=== PATIENT | female | born 1980 | race Caucasian/White ===

== ENCOUNTER 2024-10-25 09:59 | Inpatient (IN) | payer BC, MEDICAID ==
[~2024-10-25] VITALS: Ht 167.6 cm; Wt 64.8 kg
[2024-10-25 09:59] VITALS: BP 135/96; PULSE 124; RESP 16; TEMP 97.8; O2SAT 99
[2024-10-25] MEDS ORDERED: mag hydrox/Alum hydrox/simeth 30ml oral suspension PO PRN (10:15)
[2024-10-25] MEDS ORDERED: loperamide 2mg capsule PO PRN (10:15)
--- NOTE | 2024-10-25 10:49 | ELECTROCARDIOGRAPH REPORT ---
[facility] Test Date: 2024-10-25 Test Time: 10:47:28 Pat Name: TRA TROY Department: [facility]-ADULT Patient ID: [id number] Room: 323 B Gender: M Technical Solutions Engineer: AG : 1980 Requested By: KALEB CHAN Order Number: [id number] Reading MD: Dr. IRAIS Mcneal Measurements Intervals [place] Rate: 95 P: 0 NH: 89 QRS: 62 QRSD: 127 T: 240 QT: 346 QTc: 435 Interpretive Statements Sinus rhythm Multiple ventricular premature complexes Short NH interval Left bundle branch block Electronically Signed On 10-25-2024 13:25:[address] IRAIS Mcneal Please click the below link to view image of tracing.
[2024-10-25] MEDS: NICOTINE POLACRILEX 2 MG LOZENGE BC PRN (11:24)
[2024-10-25] MEDS: nicotine 21mg patch - 24 hr TD SCH (11:24)
[2024-10-25 11:57] VITALS: RESP 16; O2SAT 99
[2024-10-25] MEDS ORDERED: PROP10TA10 PO (13:08)
[2024-10-25] MEDS ORDERED: ESCI10TA PO (13:08)
[2024-10-25 14:00] VITALS: BP 133/86; PULSE 117; RESP 14; O2SAT 98
[2024-10-25] MEDS ORDERED: PERF3DRO EACHEYE (15:32)
[2024-10-25] MEDS ORDERED: ACAM333T8 PO (15:32)
[2024-10-25] MEDS ORDERED: LISI20TA28 PO (15:32)
[2024-10-25] MEDS ORDERED: PERFLUOROHEXYLOCTANE EACHEYE PRN (16:05)
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
[2024-10-25 18:00] VITALS: BP 127/81; PULSE 92; RESP 16; O2SAT 98
[2024-10-25 19:00] VITALS: RESP 18; O2SAT 100
[2024-10-25 20:00] VITALS: BP 119/84; PULSE 103; RESP 18; TEMP 99; O2SAT 100
[2024-10-25] MEDS: propranolol 10mg tablet PO SCH (21:28)
[2024-10-26] MEDS ORDERED: ACAMPROSATE CALCIUM 333 MG PO SCH
[2024-10-26 07:00] VITALS: RESP 16; O2SAT 97
[2024-10-26 08:00] VITALS: BP 100/71; PULSE 72; RESP 16; TEMP 97.1; O2SAT 97
[2024-10-26] MEDS ORDERED: propranolol 10mg tablet PO SCH (08:00)
[2024-10-26] MEDS ORDERED: ESCITALOPRAM 10 mg tablet 10 MG TABLET PO SCH (08:00)
[2024-10-26] MEDS: ESCITALOPRAM 10 mg tablet 10 MG TABLET PO SCH (08:27)
[2024-10-26] MEDS: multivitamins, therapeutics tablet PO SCH (08:28)
--- NOTE | 2024-10-26 11:09 | PROGRESS NOTE ---
Progress Note Dictate Providers to CC ~ Central Line/PICC still needed: N\\A Antibiotic Ordered?: No MRSA Education MRSA Education Provided to pt: No Objective Vitals Vital Signs Date Time Temp Pulse Resp B/P (MAP) Pulse Ox O2 Delivery O2 Flow Rate FiO2 10/26/24 08:28 72 10/26/24 08:00 97.1 16 100/71 (81) 97 Room Air Counseling Services Smoking & Tobacco Cessation: > 10 Minutes Problem\\Assessment\\Plan Problems/Diagnosis: (1) Major depression, recurrent (2) Generalized anxiety disorder (3) Alcohol abuse with alcohol-induced mood disorder (4) Alcohol abuse Psychiatrist's Progress Note Date of Service: Oct 26, 2024 Notes CHART REVIEW Pt is a 44 year old single white female who was admitted on 10/25/2024 on a 5150 for DTS with a plan to jump from a bridge or intentionally overdose. She reported hopelessness, depressed mood, poor self-esteem, trouble concentrating, and suicidal ideation per the 5150. Patient has history of MDD, recurrent severe, anxiety, alcohol use disorder, severe, and hypertension. She reported that she has been drinking heavily for the last 5 years and drinks daily. Pt reported that her sister brought her to the hospital because she was saying that she "didn't want to live anymore". Pt endorses recently "drinking a lot of alcohol", approximately "1 large bottle of wine every day". She reported feelings of not wanting to live "coming and going", feeling overwhelmed with her current family situation over the last 6 months. Pt reported that her dad 1 year ago, and her grandmother 6 months ago. ASSESSMENT The patient was interviewed in observation room. The patient was actively standing in hallway with her belongings endorsing "I have to home and take car of my little dog." The patient endorses "I feel and I had a moment to calm down reset." "I am sober I calmed down." "My mom paid all my bills and paid everyt esthela, that was one of my stressors." "I felt like I was drowning in everything." "My mom is going to be more present at my house more and I am going to go see Ting my therapist." "My depression is okay I started back on my meds today, so that will be helpful." The patient endorses no worsening mental health symptoms. Denies SI. Denies HI. Denies AVH. The patient is stable no acute distress noted. The patient presents as depressed, and engaged during session. Per staff report patient is medication compliant. Per staff report the patient attempted to leave the unit "I don't want to be here anymore" and received PRN. Per staff report patient has been engaging with activities in peers. Will continue daily assessment and adjusting treatment as needed. Closely monitor behavior and response to medication during hospitalization. Collateral received from the patient's mom, Swathi with the patient's consent and she was present. Swathi reports she came to visit the patient this AM and the patient was extremely agitated and she left after 15minutes because the patient wanted her vape and I am concerned about her safety." "I am terrified and frightened about her coming home." Swathi reports that Tracie all along has been telling her that she has been attending her therapy sessions in now she finds out that she was not and "she just tells people what they want to hear." Swathi reports she lives in [place] and her sister lives in [place]. Swathi reports she did not agree to stay with the patient more as the patient stated. Swathi became tearful during the discussion reporting "I fear for her safety." Results Of any Diagn. Testing REVIEW OF LABS WBC 9.00 RBC 4.46 HEMOGLOBIN 15.8 HEMATOCRIT 45.6 PLATELET COUNT 386 SODIUM 137 POTASSIUM 4.2 CHLORIDE 104 ANION GAP 18 BUN 8 CREATININE 0.72 CALCIUM 9.6 ALBUMIN 4.5 TSH 1.49 AST 65 ALT 80 URINE TOX SCREEN POSITIVE ALCOHOL URINALYSIS NEGATIVE Appearnace: Disheveled (DISHEVELED. AVERAGE HEIGHT THIN FEMALE.WEARING GREEN SCRUBS.DISHEVELED LONG BROWN HAIR WITH BLONDE HIGHLIGHTS), Other Speech: Other (CIRCUMSTANTIAL) Eye Contact: Intense Motor Activity: Restless Affect: Labile Mood: Angry, Depressed, Irritable Orientation Impairment: None Memory Impairment: None Attention: Normal Hallucinations: None Other: None Suicidality: None Homicidality: None Delusions: None Behavior: Agitated Insight: Poor Judgment: Poor Treatment CIWA PROTOCOL NALTREXONE 25 MG P.O. DAILY LEXAPRO 20 MG P.O. DAILY FOLIC ACID ONE TAB P.O. DAILY THIAMINE 100 MG P.O. DAILY MULTIVITAMIN ONE TAB P.O. DAILY TRAZODONE 50 MG P.O. Q.H.S. PRN BENADRYL 50 MG Q.6 PO PRN HYDROXYZINE 50 MG P.O. Q.6 PRN THORAZINE 50 MG P.O. Q.6 PRN PROPRANOLOL 10 MG P.O. B.I.D. 5150 HOLD-DTS- Patient is unable to formulate a plan to safety due to the severity of their mental illness. We are still titrating medications to an effective dose while maintaining a therapeutic environment to prevent decompensation and readmission. Monitoring by Staff, Milieu, Group, and Individual counseling as needed -- According to the [place] Suicide Assessment the above named patient is on Q15 MINUTE CHECKS. Total time spent 50 minutes on REVIEW OF Clinical notes [X ] RN notes [X] PCT documentation [X] SW notes Labs [ X] Medications [X] Care trends/care activity [X] Vitals [X] DISCUSSION WITH elevator examiner [X] Staff SW Treatment Team [X] Discharge UNSURE AT THIS TIME. DISCHARGE HOME ONCE STABLE. CODING VISIT-PSYCHIATRY Date of Service: Oct 26, 2024 Billing Provider: JAY ARMENDARIZ APRN Psych Common Visit Codes: [id number] INP/OBS CARE(Mod) JAY ARMENDARIZ APRN Oct 26, 2024 11:09
[2024-10-26 18:22] LABS: MEAN PLATELET VOLUME 8.1 FL (7.4-10.4); RED CELL DISTRIBUTION WIDTH 14.0 % (11.5-14.5)
[2024-10-26 18:50] LABS: CHOL/HDL RATIO 1.4 (0.00-4.99); CREATININE 0.68 MG/DL (0.60-1.10); LDL CHOLESTEROL 27 MG/DL (50-100); TOTAL CARBON DIOXIDE 26.3 MMOL/L (24-32); eCRCL 124 ML/MIN; eGFR > 90 ML/MIN
[2024-10-26 19:00] VITALS: RESP 12; O2SAT 98
[2024-10-26 19:36] VITALS: BP 102/66; PULSE 83; RESP 12; TEMP 98.8; O2SAT 98
--- NOTE | 2024-10-26 20:04 | HISTORY AND PHYSICAL ---
History & Physical Providers to CC ~ History of Present Illness Reason for Admit\\Complaint: Drinking more alcohol History of Present Illness 44-year-old female with alcohol use disorder hypertension anxiety and depression . She mentioned she had she drink one big bottle of wine almost everyday. She vapes but she does not smoke cigarette denied use of any recreational drug. She is feeling depressed she was seen by Psychiatry specialist Dr. Lauren who prescribed her multiple medications but she mentioned she is not taking all of it. She mentioned she is currently taking lisinopril Lexapro BuSpar propranolol and trazodone. Off and on she gets very anxious but she does not have any plan to harm her currently. As per Psychiatry record" She reported hopelessness, depressed mood, poor self-esteem, trouble concentrating, and suicidal ideation per the 5150" . Patient is 11-year-old son lives with her but in summertime he goes to his father. She has other 20-year-old and 18-year-old kids who are okay. Patient does not have very good relationship with her ex- and with her current boyfriend. She was working in I doctor's office. Patient follows with [facility] in [facility] she was also following in outpatient alcohol [facility] rehab Allergies: Coded Allergies: No Known Allergies (Unverified , 10/25/24) Home Medications Home Medications Active Reported Miebo 100% Eye Drop (Perfluorohexyloctane/Pf) 100 % Drops 1 Drop EACHEYE QID PRN Lisinopril 20 Mg Tablet 1 Tab PO DAILY Acamprosate Calcium 333 Mg Tablet. 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 No lymphadenopathy bilaterally. Eyes-no icterus or pallor seen in eyes Chest-clear to auscultation bilaterally, breathing nonlabored no tachypnea, no wheezing, no crepitation, no crackles. Heart-S1-S2 normal, regular heart rate no murmur Abdomen bowel sounds positive on auscultation, soft nondistended nontender no guarding, no rigidity Skin no active skin rash/signs of chronic hyperpigmentation present over lower extremity Neurology-grossly intact, nonfocal alert awake oriented Extremity- no pedal edema able to move all 4 extremities Psychiatry - patient is not confused or agitated cooperated during physical examination. She appears very depressed Diagnostic Data Last Recorded Lab Results: 10/26/24 1753 10/26/24 175 Additional Plan 44-year-old female with alcohol use disorder hypertension anxiety and depression . Further management of patient's suicidal ideation anxiety and depression as per psychiatric team we will continue to follow patient for her medical needs. Blood pressure stable. All labs and diagnostic workup reviewed. Date of Service: Oct 26, 2024 Billing Provider: GRISELDA DAMON MD Common Visit Codes: [id number] INP/OBS CARE (LOW) GRISELDA DAMON MD Oct 26, 2024 20:04
[2024-10-26] MEDS: magnesium hydroxide 30ml (MOM) UD suspension PO PRN (21:16)
[2024-10-26 22:00] VITALS: BP 114/64; PULSE 67; RESP 12; O2SAT 97
[2024-10-27 02:00] VITALS: RESP 12
[2024-10-27 06:00] VITALS: RESP 12
[2024-10-27 07:00] VITALS: BP 106/67; PULSE 78; RESP 16; TEMP 98.2; O2SAT 98
[2024-10-27 07:45] VITALS: RESP 16; O2SAT 98
--- NOTE | 2024-10-27 17:13 | PROGRESS NOTE ---
Progress Note Dictate Providers to CC ~ Central Line/PICC still needed: N\\A Antibiotic Ordered?: No MRSA Education MRSA Education Provided to pt: No Objective Vitals Vital Signs Date Time Temp Pulse Resp B/P (MAP) Pulse Ox O2 Delivery O2 Flow Rate FiO2 10/27/24 07:58 78 10/27/24 07:45 16 98 Room Air 10/27/24 07:00 98.2 106/67 (80) Lab Results: 10/26/24 1753 10/26/24 1753 Problem\\Assessment\\Plan Problems/Diagnosis: (1) Major depression, recurrent (2) Generalized anxiety disorder (3) Alcohol abuse with alcohol-induced mood disorder (4) Alcohol abuse Psychiatrist's Progress Note Date of Service: Oct 27, 2024 Notes CHART REVIEW Pt is a 44 year old single white female who was admitted on 10/25/2024 on a 5150 for DTS with a plan to jump from a bridge or intentionally overdose. She reported hopelessness, depressed mood, poor self-esteem, trouble concentrating, and suicidal ideation per the 5150. Patient has history of MDD, recurrent severe, anxiety, alcohol use disorder, severe, and hypertension. She reported that she has been drinking heavily for the last 5 years and drinks daily. Pt reported that her sister brought her to the hospital because she was saying that she "didn't want to live anymore". Pt endorses recently "drinking a lot of alcohol", approximately "1 large bottle of wine every day". She reported feelings of not wanting to live "coming and going", feeling overwhelmed with her current family situation over the last 6 months. Pt reported that her dad 1 year ago, and her grandmother 6 months ago. ASSESSMENT The patient was interviewed in observation room. The patient was actively resting in bed with eyes closed. The patient endorses "I am ready to go function back into life." "I don't know why my mom wouldn't agree to helping me more, I would do it for my child." 'I was just drinking." Patient endorses no worsening mental health symptoms. Denies SI. Denies HI. Denies AVH. Patient endorses adequate sleep and food intake. The patient is stable no acute distress noted. The patient presents as depressed, a bit anxious, angry (that she was placed on 5250), and engaged during session. The patient seems to be minimizing her symptoms, "I was just drinking.". Per staff report patient is medication compliant. Per staff report no abnormal behaviors. Per patient she participated in activities today, painting. Will continue daily assessment and adjusting treatment as needed. Closely monitor behavior and response to medication during hospitalization. Results Of any Diagn. Testing REVIEW OF LABS WBC 9.00 RBC 4.46 HEMOGLOBIN 15.8 HEMATOCRIT 45.6 PLATELET COUNT 386 SODIUM 137 POTASSIUM 4.2 CHLORIDE 104 ANION GAP 18 BUN 8 CREATININE 0.72 CALCIUM 9.6 ALBUMIN 4.5 TSH 1.49 AST 65 ALT 80 URINE TOX SCREEN POSITIVE ALCOHOL URINALYSIS NEGATIVE Appearnace: Disheveled (AVERAGE HEIGHT THIN FEMALE.WEARING GREEN SCRUBS.DISHEVELED LONG BROWN HAIR WITH BLONDE HIGHLIGHTS) Speech: Other (CIRCUMSTANTIAL) Eye Contact: Avoidant Motor Activity: Normal Affect: Flat Mood: Angry, Depressed, Irritable Orientation Impairment: None Memory Impairment: None Attention: Normal Hallucinations: None Other: None Suicidality: None Homicidality: None Delusions: None Behavior: Guarded Insight: Poor Judgment: Poor Treatment CIWA PROTOCOL NALTREXONE 25 MG P.O. DAILY LEXAPRO 20 MG P.O. DAILY FOLIC ACID ONE TAB P.O. DAILY THIAMINE 100 MG P.O. DAILY MULTIVITAMIN ONE TAB P.O. DAILY TRAZODONE 50 MG P.O. Q.H.S. PRN BENADRYL 50 MG Q.6 PO PRN HYDROXYZINE 50 MG P.O. Q.6 PRN THORAZINE 50 MG P.O. Q.6 PRN PROPRANOLOL 10 MG P.O. B.I.D. 5250 HOLD-DTS- Patient is unable to formulate a plan to safety due to the severity of their mental illness. We are still titrating medications to an effective dose while maintaining a therapeutic environment to prevent decompensation and readmission. Monitoring by Staff, Milieu, Group, and Individual counseling as needed -- According to the [place] Suicide Assessment the above named patient is on Q15 MINUTE CHECKS. Total time spent 30 minutes on REVIEW OF Clinical notes [X ] RN notes [X] PCT documentation [X] SW notes Labs [ X] Medications [X] Care trends/care activity [X] Vitals [X] DISCUSSION WITH blank driller [X] Staff SW Treatment Team [X] Discharge UNSURE AT THIS TIME. DISCHARGE HOME ONCE STABLE. CODING VISIT-PSYCHIATRY Date of Service: Oct 27, 2024 Billing Provider: JAY ARMENDARIZ APRN Psych Common Visit Codes: [id number] INP/OBS CARE(Mod) JAY ARMENDARIZ APRN Oct 27, 2024 17:13
[2024-10-27 19:00] VITALS: RESP 18; O2SAT 99
[2024-10-27 19:30] VITALS: BP 115/74; PULSE 84; RESP 18; TEMP 98.2; O2SAT 99
[2024-10-28 07:00] VITALS: RESP 16; O2SAT 96
[2024-10-28 08:00] VITALS: BP 97/67; PULSE 75; RESP 16; TEMP 97.2; O2SAT 96
--- NOTE | 2024-10-28 09:36 | PROGRESS NOTE ---
Progress Note Dictate Providers to CC ~ Central Line/PICC still needed: N\\A Antibiotic Ordered?: No MRSA Education MRSA Education Provided to pt: No Objective Vitals Vital Signs Date Time Temp Pulse Resp B/P (MAP) Pulse Ox O2 Delivery O2 Flow Rate FiO2 10/28/24 08:00 75 10/27/24 19:30 98.2 18 115/74 (88) 99 Room Air Lab Results: 10/26/24 1753 10/26/24 1753 Problem\\Assessment\\Plan Problems/Diagnosis: (1) Major depression, recurrent (2) Generalized anxiety disorder (3) Alcohol abuse with alcohol-induced mood disorder (4) Alcohol abuse Psychiatrist's Progress Note Date of Service: Oct 28, 2024 Notes CHART REVIEW Pt is a 44 year old single white female who was admitted on 10/25/2024 on a 5150 for DTS with a plan to jump from a bridge or intentionally overdose. She reported hopelessness, depressed mood, poor self-esteem, trouble concentrating, and suicidal ideation per the 5150. Patient has history of MDD, recurrent severe, anxiety, alcohol use disorder, severe, and hypertension. She reported that she has been drinking heavily for the last 5 years and drinks daily. Pt reported that her sister brought her to the hospital because she was saying that she "didn't want to live anymore". Pt endorses recently "drinking a lot of alcohol", approximately "1 large bottle of wine every day". She reported feelings of not wanting to live "coming and going", feeling overwhelmed with her current family situation over the last 6 months. Pt reported that her dad 1 year ago, and her grandmother 6 months ago. ASSESSMENT The patient was interviewed in observation room. The patient was actively sitting up in bed engaging with roommate. The patient endorses "I am doing okay." "I really need to get home and get back to work and I have a little dog at home." The is focused on going home and her dog and is not able to formulate a plan for safe discharge home. "I just don't know why my mom can't help me." "I was really missing my boys and I got depressed and sad." The patsulyn endorses her son is still with his dad for the summer. When asked what copying skills would you use if you become sad again while he is at his dad's house for the summer, the patient endorses "I don't know, I guess I will have to ask his dad if he can bring him by." "I have tried so many medications for my depression and they don't work." Denies SI. Denies HI. Denies AVH. Patient endorses adequate sleep and food intake. The patient is stable no acute distress noted. The patient presents as depressed, a anxious, and engaged during session. Per staff report patient is medication compliant. Per staff report no abnormal behaviors. Will continue daily assessment and adjusting treatment as needed. Closely monitor behavior and response to medication during hospitalization. Results Of any Diagn. Testing REVIEW OF LABS WBC 9.00 RBC 4.46 HEMOGLOBIN 15.8 HEMATOCRIT 45.6 PLATELET COUNT 386 SODIUM 137 POTASSIUM 4.2 CHLORIDE 104 ANION GAP 18 BUN 8 CREATININE 0.72 CALCIUM 9.6 ALBUMIN 4.5 TSH 1.49 AST 65 ALT 80 URINE TOX SCREEN POSITIVE ALCOHOL URINALYSIS NEGATIVE Appearnace: Other (AVERAGE HEIGHT THIN FEMALE.WEARING GREEN SCRUBS.DISHEVELED LONG BROWN HAIR WITH BLONDE HIGHLIGHTS) Speech: Other (CIRCUMSTANTIAL) Eye Contact: Other (INTERMITTENT) Motor Activity: Normal Affect: Full Orientation Impairment: None Memory Impairment: None Attention: Normal Hallucinations: None Other: None Suicidality: None Homicidality: None Delusions: None Behavior: Cooperative Insight: Fair, Poor Judgment: Fair, Poor Treatment [facility] PROTOCOL NALTREXONE 25 MG P.O. DAILY LEXAPRO 20 MG P.O. DAILY FOLIC ACID ONE TAB P.O. DAILY THIAMINE 100 MG P.O. DAILY MULTIVITAMIN ONE TAB P.O. DAILY TRAZODONE 50 MG P.O. Q.H.S. PRN BENADRYL 50 MG Q.6 PO PRN HYDROXYZINE 50 MG P.O. Q.6 PRN THORAZINE 50 MG P.O. Q.6 PRN PROPRANOLOL 10 MG P.O. B.I.D. Initiate ABILIFY 2.5 MG P.O. Q.H.S.-HELP WITH DEPRESSION 5250 HOLD-DTS- Patient is unable to formulate a plan to safety due to the severity of their mental illness. We are still titrating medications to an effective dose while maintaining a therapeutic environment to prevent decompensation and readmission. Monitoring by Staff, Milieu, Group, and Individual counseling as needed -- According to the [place] Suicide Assessment the above named patient is on Q15 MINUTE CHECKS. Total time spent 40 minutes on REVIEW OF Clinical notes [X ] RN notes [X] PCT documentation [X] SW notes Labs [ X] Medications [X] Care trends/care activity [X] Vitals [X] DISCUSSION WITH kit assembler [X] Staff SW Treatment Team [X] Discharge UNSURE AT THIS TIME. DISCHARGE HOME ONCE STABLE. CODING VISIT-PSYCHIATRY Date of Service: Oct 28, 2024 Billing Provider: JAY ARMENDARIZ APRN Psych Common Visit Codes: [id number] INP/OBS CARE(Mod) JYA ARMENDARIZ APRN Oct 28, 2024 09:36
[2024-10-28 19:00] VITALS: RESP 16; O2SAT 98
--- NOTE | 2024-10-28 19:04 | PROGRESS NOTE- Residence ---
Progress Note - Resident Providers to CC Resident Creating Document: ALBERT GO RES CC: MORIAH ALONZO MD ~ Antibiotic Timeout Antibiotic Ordered?: No Subjective Patient is seen today she she is complaining of anxiety with palpitations. No other complaint Objective Vital Signs Date Time Temp Pulse Resp B/P (MAP) Pulse Ox O2 Delivery O2 Flow Rate FiO2 10/28/24 08:00 97.2 75 16 97/67 (77) 96 Room Air Result Diagram: 10/26/24 17510/26/24 175 General: Adult female, AAO x4, not in apparent distress Head: Normocephalic with an atraumatic Eyes: Pupils- 3mm, reacting to light, conjunctiva- anicteric Nose and throat: No polyps, septum- normal, no mucosal ulcers Neck: Supple, no lymphadenopathy, no carotid bruit Respiratory: No use of accessory muscles of respiration, Bilateral normal vesiscular breath sounds heard. No wheeze, rhochi or creps Cardiac: S1-S2 heard, rythm regular, no gallop/murmur Abdomen: non distended, no tenderness, no organomegaly, bowel sounds- heard Extremities: no clubbing, no pedal edema, no deformities, peripheral pulses- 2+ Skin: warm and dry, no rash, no purpura Neuro: No focal deficit, gross cranial nerve exam- normal Assessment Assessment 44-year-old female with alcohol use disorder, hypertension, anxiety, depression is admitted to the [facility] for grave disability HYPERTENSION -continue lisinopril 20 mg once daily Anxiety/depression -management per Psychiatry Alcohol use disorder -continue thiamine and folate -lorazepam PRN for anxiety Macrocytosis -suspect secondary to alcohol use Increased transaminases -AST/ALT 106/107, normal bilirubin -repeat CMP in 2-3 days to look for resolution -suspect secondary to alcohol use Date of Service: Oct 28, 2024 Billing Provider: MORIAH ALONZO MD, HARIVARSHA, RES Oct 28, 2024 19:04
[2024-10-28 20:00] VITALS: BP 123/89; PULSE 111; RESP 16; TEMP 98.7; O2SAT 98
[2024-10-29 07:00] VITALS: BP 100/76; PULSE 80; RESP 16; TEMP 97.6; O2SAT 98
--- NOTE | 2024-10-29 16:51 | PROGRESS NOTE ---
Progress Note Dictate Providers to CC ~ Central Line/PICC still needed: N\\A Antibiotic Ordered?: N/A MRSA Education MRSA Education Provided to pt: N/A Objective Vitals Vital Signs Date Time Temp Pulse Resp B/P (MAP) Pulse Ox O2 Delivery O2 Flow Rate FiO2 10/29/24 08:00 53 10/29/24 07:00 97.6 16 100/76 (84) 98 Room Air Lab Results: 10/26/24 1753 10/26/24 175 Psychiatrist's Progress Note Date of Service: Oct 29, 2024 Notes CHART REVIEW Pt is a 44 year old single white female who was admitted on 10/25/2024 on a 5150 for DTS with a plan to jump from a bridge or intentionally overdose. She reported hopelessness, depressed mood, poor self-esteem, trouble concentrating, and suicidal ideation per the 5150. Patient has history of MDD, recurrent severe, anxiety, alcohol use disorder, severe, and hypertension. She reported that she has been drinking heavily for the last 5 years and drinks daily. Pt reported that her sister brought her to the hospital because she was saying that she "didn't want to live anymore". Pt endorses recently "drinking a lot of alcohol", approximately "1 large bottle of wine every day". She reported feelings of not wanting to live "coming and going", feeling overwhelmed with her current family situation over the last 6 months. Pt reported that her dad 1 year ago, and her grandmother 6 months ago. ASSESSMENT The patient was interviewed in observation room. The patient was seating in her bed in her assigned room. "I'm a functioning person in society, I feel better now, I never did have that thought, Alcohol was involve, I can see my son on my phone, My little one is with his dad, I do not have a job anymore, I am incredibly stressed, My mood is good now, I slept well last night, I am a good mom, I am not suicidal, I have a horrible lapse of judgment because of alcohol." The patient endorses Denies SI. Denies HI. Denies AVH. Patient endorses adequate sleep and food intake. The patient is stable no acute distress noted. The patient presents as less depressed, a less anxious, and engaged during session. Per staff report patient is medication compliant. Per staff report no abnormal behaviors. Per patient she participated in activities today, painting. Will continue daily assessment and adjusting treatment as needed. Closely monitor behavior and response to medication during hospitalization. Results Of any Diagn. Testing REVIEW OF LABS WBC 9.00 RBC 4.46 HEMOGLOBIN 15.8 HEMATOCRIT 45.6 PLATELET COUNT 386 SODIUM 137 POTASSIUM 4.2 CHLORIDE 104 ANION GAP 18 BUN 8 CREATININE 0.72 CALCIUM 9.6 ALBUMIN 4.5 TSH 1.49 AST 65 ALT 80 URINE TOX SCREEN POSITIVE ALCOHOL URINALYSIS NEGATIVE Appearnace: Disheveled Speech: Pressured, Other (Circumstantial) Eye Contact: Intense Motor Activity: Other (labile) Affect: Labile Mood: Anxious, Depressed Orientation Impairment: None Memory Impairment: None Attention: Normal Hallucinations: None Other: None Suicidality: None Homicidality: None Delusions: None Behavior: Other (labile) Insight: Poor Judgment: Poor Treatment NALTREXONE 25 MG P.O. DAILY LEXAPRO 20 MG P.O. DAILY FOLIC ACID ONE TAB P.O. DAILY THIAMINE 100 MG P.O. DAILY MULTIVITAMIN ONE TAB P.O. DAILY TRAZODONE 50 MG P.O. Q.H.S. PRN BENADRYL 50 MG Q.6 PO PRN HYDROXYZINE 50 MG P.O. Q.6 PRN THORAZINE 50 MG P.O. Q.6 PRN PROPRANOLOL 10 MG P.O. B.I.D. 5250 HOLD-DTS- Patient is unable to formulate a plan to safety due to the severity of their mental illness. We are still titrating medications to an effective dose while maintaining a therapeutic environment to prevent decompensation and readmission. Monitoring by Staff, Milieu, Group, and Individual counseling as needed -- According to the [place] Suicide Assessment the above named patient is on Q15 MINUTE CHECKS. Total time spent 40 minutes on REVIEW OF Clinical notes [X ] RN notes [X] PCT documentation [X] SW notes Labs [ X] Medications [X] Care trends/care activity [X] Vitals [X] DISCUSSION WITH director heart [X] Staff SW Treatment Team [X] Discharge UNSURE AT THIS TIME. DISCHARGE HOME ONCE STABLE. CODING VISIT-PSYCHIATRY Date of Service: Oct 29, 2024 Billing Provider: AMANDA MENDOZA APRN Psych Common Visit Codes: [id number] INP/OBS CARE(Mod) AMANDA MENDOZA APRN Oct 29, 2024 16:51
[2024-10-29] MEDS: propranolol 10mg tablet PO PRN (17:02)
[2024-10-29 19:00] VITALS: RESP 16; O2SAT 98
[2024-10-29 19:41] VITALS: BP 144/95; PULSE 82; RESP 16; TEMP 98.8; O2SAT 98
[2024-10-30] MEDS ORDERED: propranolol 10mg tablet PO PRN
[2024-10-30 07:00] VITALS: BP 117/82; PULSE 88; RESP 14; TEMP 97.7; O2SAT 96
--- NOTE | 2024-10-30 11:43 | PROGRESS NOTE ---
Progress Note Dictate Providers to CC ~ Central Line/PICC still needed: N\\A Antibiotic Ordered?: N/A MRSA Education MRSA Education Provided to pt: N/A Objective Vitals Vital Signs Date Time Temp Pulse Resp B/P (MAP) Pulse Ox O2 Delivery O2 Flow Rate FiO2 10/30/24 07:33 88 10/30/24 07:00 97.7 14 117/82 (94) 96 Room Air Lab Results: 10/26/24 1753 10/26/24 175 Psychiatrist's Progress Note Date of Service: Oct 30, 2024 Notes CHART REVIEW Pt is a 44 year old single white female who was admitted on 10/25/2024 on a 5150 for DTS with a plan to jump from a bridge or intentionally overdose. She reported hopelessness, depressed mood, poor self-esteem, trouble concentrating, and suicidal ideation per the 5150. Patient has history of MDD, recurrent severe, anxiety, alcohol use disorder, severe, and hypertension. She reported that she has been drinking heavily for the last 5 years and drinks daily. Pt reported that her sister brought her to the hospital because she was saying that she "didn't want to live anymore". Pt endorses recently "drinking a lot of alcohol", approximately "1 large bottle of wine every day". She reported feelings of not wanting to live "coming and going", feeling overwhelmed with her current family situation over the last 6 months. Pt reported that her dad 1 year ago, and her grandmother 6 months ago. ASSESSMENT The patient was interviewed in observation room. The patient was seating in her bed in her assigned room. "I feel good." "I feel better." "I plan to go do exercise by walking and yoga." "I slept well last night except when i was awakened by an overhead warning." The patient endorses Denies SI. Denies HI. Denies AVH. Patient endorses adequate sleep and food intake. The patient is stable no acute distress noted. The patient presents as less depressed, a less anxious, and engaged during session. Per staff report patient is medication compliant. Per staff report no abnormal behaviors. Will continue daily assessment and adjusting treatment as needed. Closely monitor behavior and response to medication during hospitalization. Results Of any Diagn. Testing WBC 9.00 RBC 4.46 HEMOGLOBIN 15.8 HEMATOCRIT 45.6 PLATELET COUNT 386 SODIUM 137 POTASSIUM 4.2 CHLORIDE 104 ANION GAP 18 BUN 8 CREATININE 0.72 CALCIUM 9.6 ALBUMIN 4.5 TSH 1.49 AST 65 ALT 80 URINE TOX SCREEN POSITIVE ALCOHOL URINALYSIS NEGATIVE Appearnace: Neat Speech: Normal, Other (Circumstantial) Eye Contact: Normal Motor Activity: Normal Affect: Full Orientation Impairment: None Memory Impairment: None Attention: Normal Hallucinations: None Other: None Suicidality: None Homicidality: None Delusions: None Behavior: Cooperative, Withdrawn Insight: Fair, Poor Judgment: Fair, Poor Treatment NALTREXONE 25 MG P.O. DAILY LEXAPRO 20 MG P.O. DAILY FOLIC ACID ONE TAB P.O. DAILY THIAMINE 100 MG P.O. DAILY MULTIVITAMIN ONE TAB P.O. DAILY TRAZODONE 50 MG P.O. Q.H.S. PRN BENADRYL 50 MG Q.6 PO PRN HYDROXYZINE 50 MG P.O. Q.6 PRN THORAZINE 50 MG P.O. Q.6 PRN PROPRANOLOL 10 MG P.O. QD PRN 5250 HOLD-DTS- Patient is unable to formulate a plan to safety due to the severity of their mental illness. We are still titrating medications to an effective dose while maintaining a therapeutic environment to prevent decompensation and readmission. Monitoring by Staff, Milieu, Group, and Individual counseling as needed -- According to the [place] Suicide Assessment the above named patient is on Q15 MINUTE CHECKS. Total time spent 35 minutes on REVIEW OF Clinical notes [X ] RN notes [X] PCT documentation [X] SW notes Labs [ X] Medications [X] Care trends/care activity [X] Vitals [X] DISCUSSION WITH disability counselor [X] Staff SW Treatment Team [X] Discharge UNSURE AT THIS TIME. DISCHARGE HOME ONCE STABLE. CODING VISIT-PSYCHIATRY Date of Service: Oct 30, 2024 Billing Provider: AMANDA MENDOZA APRN Psych Common Visit Codes: [id number] INP/OBS CARE(Mod) AMANDA MENDOZA APRN Oct 30, 2024 11:43
--- NOTE | 2024-10-30 18:09 | PROGRESS NOTE- Residence ---
Progress Note - Resident Providers to CC Resident Creating Document: CLAUDIA SALMON RES ~ Antibiotic Timeout Antibiotic Ordered?: No Subjective Patient is seen and examined at the bedside. She denies any medical complaint today. Objective Vital Signs Date Time Temp Pulse Resp B/P (MAP) Pulse Ox O2 Delivery O2 Flow Rate FiO2 10/30/24 07:33 88 10/30/24 07:00 97.7 14 117/82 (94) 96 Room Air Result Diagram: 10/26/24 1753 10/26/24 175 General: Awake and Alert, no acute distress. HEENT: Conjunctiva pink, Sclera clear, Mucus Membranes moist. Neck: Supple without masses and tenderness. Resp: Unlabored. Lungs clear to auscultation bilaterally. Heart: Regular Rate and rhythm, normal S1 and S2 without murmur, rub or gallop. Abdomen: Soft and non tender no organomegaly Extremities: No cyanosis,clubbing or edema. Skin: Warm and Dry. Assessment Assessment 44-year-old female with alcohol use disorder, hypertension, anxiety, depression is admitted to the [facility] for grave disability HYPERTENSION -continue lisinopril 20 mg once daily Anxiety/depression -management per Psychiatry Alcohol use disorder -continue thiamine and folate -lorazepam PRN for anxiety Macrocytosis -suspect secondary to alcohol use Increased transaminases -AST/ALT 106/107, normal bilirubin -repeat CMP in 2-3 days to look for resolution -suspect secondary to alcohol use 10/30/2024 Ordered CBC and CMP Hospitalist team will follow the patient as per protocol Date of Service: Oct 30, 2024 Billing Provider: DYLAN CANTU MD Common Visit Codes: [id number] INP/OBS CARE(MOD) CLAUDIA SALMON RES Oct 30, 2024 18:09 DYLAN CANTU MD Oct 30, 2024 20:14
[2024-10-30 19:00] VITALS: BP 116/71; PULSE 88; RESP 16; TEMP 98.8; O2SAT 99
[2024-10-31 07:00] VITALS: BP 105/69; PULSE 90; RESP 12; TEMP 97.9; O2SAT 98
[2024-10-31 07:25] VITALS: BP_SYST 105; PULSE 90
[2024-10-31 08:30] LABS: MEAN PLATELET VOLUME 8.4 FL (7.4-10.4); RED CELL DISTRIBUTION WIDTH 14.3 % (11.5-14.5)
[2024-10-31 08:45] LABS: CREATININE 0.96 MG/DL (0.60-1.10); TOTAL CARBON DIOXIDE 25.9 MMOL/L (24-32); eCRCL 88 ML/MIN; eGFR 85 ML/MIN
[2024-10-31 09:13] LABS: LYMPHOCYTES % (MANUAL) 36.0 % (21-51); MONOCYTES % (MANUAL) 11.0 % (2-12); NEUTROPHILS % (MANUAL) 53.0 % (42-75)
[2024-10-31 09:14] LABS: PLATELET ESTIMATE NORMAL
--- NOTE | 2024-10-31 11:24 | DISCHARGE SUMMARY ---
Discharge Summary Providers to CC ~ Discharge Summary Admission Diagnosis: MAJOR DEPRESS, RECURRENT, KRISTAN, ETOH ABUSE W/INDUCED MOOD DISORDER,ETOH ABUS Hospital Course DATE OF ADMISSION: DATE OF DISCHARGE: Discharge Diagnosis\\Comment: MAJOR DEPRESS, RECURRENT KRISTAN ETOH ABUSE W/INDUCED MOOD DISORDER ETOH ABUS Operations\\Procedures: NONE Consultants: MEDICAL TEAM Complications: NONE Condition on DC: Stable 2 or more antipsychotic used: No 2/more antipsychotic addressed: No Does Patient smoke: Yes Smoking education given.: Yes New Medications: Aripiprazole (Aripiprazole) 5 Mg Tablet 2.5 MG PO DAILY for 14 Days, #14 TAB Escitalopram Oxalate (Escitalopram Oxalate) 10 Mg Tablet 20 MG PO DAILY for 14 Days, #14 TAB Folic Acid* (Folic Acid*) Y Tab 1 MG PO DAILY for 30 Days, #30 TAB Multivitamin with Folic Acid (Thera Tablet) 400 Mcg Tablet 1 EACH PO Q24H for 30 Days, #30 TAB [thiamine tablet] () 100 MG TABLET 100 MG PO DAILY for 30 Days, #30 Continued Medications: Acamprosate Calcium (Acamprosate Calcium) 333 Mg Tablet.dr 2 TAB PO Q8H, TAB 0 Refills Lisinopril (Lisinopril) 20 Mg Tablet 1 TAB PO DAILY for 14 Days, #14 TAB (This prescription has been renewed) Perfluorohexyloctane/Pf (Miebo 100% Eye Drop) 100 % Drops 1 DROP EACHEYE QID PRN for dry eyes Propranolol Hcl* (Inderal*) 10 Mg Tablet 1 TAB PO DAILY for 14 Days, #14 TAB (This prescription has been renewed) Discontinued Medications: Escitalopram Oxalate (Lexapro) 10 Mg Tablet 1 TAB PO DAILY, TAB 0 Refills Discharge Summary: CHART REVIEW Pt is a 44 year old single white female who was admitted on 10/25/2024 on a 5150 for DTS with a plan to jump from a bridge or intentionally overdose. She reported hopelessness, depressed mood, poor self-esteem, trouble concentrating, and suicidal ideation per the 5150. Patient has history of MDD, recurrent severe, anxiety, alcohol use disorder, severe, and hypertension. She reported that she has been drinking heavily for the last 5 years and drinks daily. Pt reported that her sister brought her to the hospital because she was saying that she "didn't want to live anymore". Pt endorses recently "drinking a lot of alcohol", approximately "1 large bottle of wine every day". She reported feelings of not wanting to live "coming and going", feeling overwhelmed with her current family situation over the last 6 months. Pt reported that her dad 1 year ago, and her grandmother 6 months ago. Patient actively seen and examined on day of discharge 10/31/2024, by myself, RIOS Bernstein. The patient is interviewed in observation room. The patient endorses "Good." Denies SI. Denies HI. Denies AVH. Tracie was able to formulate a safety plan which includes going to the emergency room if symptoms return or worsen. Call [phone] or [phone] for immediate assistance if necessary. During his hospital stay, Tracie receive multidisciplinary treatment he adhered to his medication regimen and has been pleasant and cooperative. She denies any suicidal ideation (SI), homicidal ideation (HI), auditory/visual hallucination (HI). Staff has reported no behavioral issues, and the patient has been sleeping well, adequate food intake, with no mood or behavioral changes noted. The decision to discharge Tracie was made in consensus with the treatment team, including the social work coordinator, unit tender, and relief charge nurse on duty. The patient was discharged a 14 day supply of medication. MENTAL STATUS EXAM APPEARANCE: APPROPRIATELY. DRESSED IN STREET CLOTHING. SPEECH: CIRCUMSTANCE EYE CONTACT: NORMAL AFFECT: CONGRUENT WITH MOOD MOOD: "GOOD" ORIENTATION IMPAIRMENT: NONE MEMORY IMPAIRMENT: NONE ATTENTION: NORMAL HALLUCINATIONS: NONE SUICIDALITY: NONE HOMICIDALITY: NONE DELUSIONS: NONE BEHAVIOR: COOPERATIVE, PLEASANT JUDGMENT: FAIR INSIGHT: FAIR Continue Current Inpatient Psychotropic Regimen @ home Follow-Up with Psychiatric Provider Safety Plan Discussed DISCHARGE CONDITION: Her readiness for discharge is supported by his stable mental status, adherence to treatment, and proactive approach to managing his mental health. Denies SI. Denies HI. Denies A/V/H. The patient has been informed to continue follow-up care to ensure ongoing support and monitoring. Patient discharged to home. *Problems/Diagnosis: (1) Major depression, recurrent (2) Generalized anxiety disorder (3) Alcohol abuse with alcohol-induced mood disorder (4) Alcohol abuse Total Time Spent on D/C: > 30 Minutes Counseling Services Smoking & Tobacco Cessation: > 10 Minutes CODING VISIT-PSYCHIATRY Date of Service: Oct 31, 2024 Billing Provider: JAY ARMENDARIZ APRN Psych Common Visit Codes: [id number] DISCH DAY >30min JAY ARMENDARIZ APRN Oct 31, 2024 11:24
[2024-10-31] MEDS ORDERED: FOLI1TAB27 PO (11:33)
[2024-10-31] MEDS ORDERED: PROP10TA10 PO (11:33)
[2024-10-31] MEDS ORDERED: LISI20TA28 PO (11:33)
[2024-10-31] MEDS ORDERED: MULT-25 PO (11:33)
[2024-10-31] MEDS ORDERED: ESCI-8 PO (11:33)
[2024-10-31] MEDS ORDERED: ARIP5TAB53 PO (11:33)
[2024-10-31] MEDS ORDERED: thiamine tablet PO (11:33)
--- NOTE | 2024-10-31 22:27 | RADIOLOGY REPORT ---
INDICATION: elevated LFT's TECHNIQUE: Multiple real-time sonographic images were obtained of the right upper quadrant. COMPARISON: None FINDINGS: The liver demonstrates homogeneous echotexture without focal mass lesions. The liver measu res 14.0 cm. Normal hepatopetal portal flow identified. No evidence of pleural effusion or abdominal ascites. There is no intrahepatic or extrahepatic ductal dilatation. The common duct measures 0.4 cm. The gallbladder is without evidence of stone or sludge. The gallbladder wall measures 0.2 cm and is w ithin normal limits. Negative sonographic delgado's sign. The right kidney measures 9.7 cm. The right kidney is normal in contour, size, and shape. The echogen icity is normal. There is no hydronephrosis. The pancreas is normal in appearance. IMPRESSION: 1. Unremarkable right upper quadrant sonogram.
== END 2024-10-31 19:05 | disposition home or self-care (01) | DRG 885 ==
LOC: ADULT MH 09:59 → EDSEX 09:59 → UNDOADMIN 10:02 → ADULT MH 10:02
PROVIDERS: ADMIT Psychiatry & Neurology Psychiatry; ATTEND Psychiatry & Neurology Psychiatry
PROC: GZHZZZZ Group Psychotherapy (ICD-10-PCS; principal; 2024-10-25)
PROC: GZ51ZZZ Individual Psychotherapy, Behavioral (ICD-10-PCS; 2024-10-25)
DX: F33.9 Major depressive disorder, recurrent, unspecified (principal); R45.851 Suicidal ideations; F10.14 Alcohol abuse with alcohol-induced mood disorder; I10 Essential (primary) hypertension; F41.1 Generalized anxiety disorder; Z79.899 Other long term (current) drug therapy; Z80.3 Family history of malignant neoplasm of breast; Z81.8 Family history of other mental and behavioral disorders; Z90.710 Acquired absence of both cervix and uterus; Z63.4 Disappearance and death of family member; Y90.9 Presence of alcohol in blood, level not specified
CPT/HCPCS: 36415; 76700; 80053; 80061; 85007; 85025; 87081; 93005; A6250; Q0163; Q0177